=== PATIENT | male | born 1960 | race Caucasian/White ===

== ENCOUNTER 2018-05-20 10:36 | Emergency (ER) | payer MEDICAID, MEDICARE ==
[2018-05-20] MEDS ORDERED: ONDANSETRON HCL INJ/PF 4 MG/2 ML SDV IV ONE (11:31)
[2018-05-20] MEDS ORDERED: NORMAL SALINE 1000 ML 1,000 ML IV ONE ×2 (11:31→14:26)
--- NOTE | 2018-05-20 11:33 | ER Document Report ---
ED Medical Screen (RME) - General Chief Complaint: General Weakness Stated Complaint: ABDOMINAL PAIN Time Seen by Provider: 05/20/18 11:26 Notes: 58-year-old diabetic with 2-day history of feeling weak, nauseous, some abdominal discomfort, feeling like is going to pass out every time he stands up. He is hypotensive and tachycardic, has not checked his sugars. I have greeted and performed a rapid initial assessment of this patient. A com prehensive ED assessment and evaluation of the patient, analysis of test results and completion of the medical decision making process will be conducted by additional ED providers. TRAVEL OUTSIDE OF THE [place] IN LAST 30 DAYS: No - Related Data Allergies/Adverse Reactions: No Known Allergies Allergy (Unverified 05/20/18 10:38) Past Medical History - Social History Chew tobacco use (# tins/day): No Frequency of alcohol use: None Drug Abuse: None Renal/ Medical History: Denies: Hx Peritoneal Dialysis Physical Exam - Vital signs Vitals: Temp Pulse Resp BP Pulse Ox 97.9 F 118 H 14 101/60 95 05/20/18 10:46 05/20/18 10:46 05/20/18 10:46 05/20/18 10:46 05/20/18 10:46 Course - Vital Signs Vital signs: Temp Pulse Resp BP Pulse Ox 97.9 F 118 H 14 101/60 95 05/20/18 10:46 05/20/18 10:46 05/20/18 10:46 05/20/18 10:46 05/20/18 10:46
[2018-05-20 12:28] LABS: ABSOLUTE BASOPHILS # (AUTO) 0.1 10^3/uL (0.0-0.2); ABSOLUTE EOSINOPHILS # (AUTO) 0.3 10^3/uL (0.0-0.6); ABSOLUTE LYMPHOCYTES (AUTO) 1.6 10^3/uL (0.5-4.7); ABSOLUTE MONOCYTES (AUTO) 0.8 10^3/uL (0.1-1.4); ABSOLUTE NEUT (AUTO) 9.1 10^3/uL (1.7-8.2); BASOPHILS % (AUTO) 1.1 % (0-2); EOSINOPHILS % (AUTO) 2.6 % (0-6); HEMOGLOBIN 13.8 g/dL (13.5-17.0); LYMPHOCYTES % (AUTO) 13.5 % (13-45); MEAN CORPUSCULAR HGB CONC 32.8 g/dL (32.0-36.0); MEAN CORPUSCULAR VOLUME 76 fl (80-97); PLATELET COUNT 311 10^3/uL (150-450); RED CELL DISTRIBUTION WIDTH 17.1 % (11.5-14.0); SEGMENTED NEUTROPHILS % (AUTO) 75.8 % (42-78); TOTAL CELLS COUNTED % (AUTO) 100 %
[2018-05-20 12:37] LABS: APPEARANCE,URINE CLEAR; BILIRUBIN,URINE NEGATIVE (NEGATIVE); COLOR,URINE YELLOW; GLUCOSE, URINE >=500 mg/dL (NEGATIVE); KETONES,URINE NEGATIVE (NEGATIVE); LEUKOCYTE ESTERASE,URINE NEGATIVE (NEGATIVE); NITRITE,URINE NEGATIVE (NEGATIVE); PROTEIN,URINE 30 mg/dL (NEGATIVE); URINE SPECIFIC GRAVITY 1.027; UROBILINOGEN,URINE NEGATIVE mg/dL (<2.0)
--- NOTE | 2018-05-20 12:43 | ER Document Report ---
ED Dizziness/Weakness - General Chief Complaint: General Weakness Stated Complaint: ABDOMINAL PAIN Time Seen by Provider: 05/20/18 11:26 Notes: Patient says he is feeling lightheaded and weak and dizzy and feels as if he might pass out since yesterday. Flores s been nauseated but not vomiting. Has been able to eat, although less than usual. He has had plenty of fluids. Says he tries to drink about a gallon of water every day and has been able to do so. Urinating is normal for him. He is an insulin-dependent diabetic who is on Jardiance and Januvia, but has been unable to check his blood sugars because his dog ate his glucometer. Patient has not noticed any fevers. Has not had any diarrhea. No blood in his stools. History of hypertension for which she is on losartan. TRAVEL OUTSIDE OF THE [place] IN LAST 30 DAYS: No - Related Data Allergies/Adverse Reactions: No Known Allergies Allergy (Unverified 05/20/18 10:38) Past Medical History - Social History Smoking Status: Former Smoker Chew tobacco use (# tins/day): No Frequency of alcohol use: None Drug Abuse: None Family History: Reviewed & Not Pertinent Patient has suicidal ideation: No Patient has homicidal ideation: No - Past Medical History Cardiac Medical History: Reports: Hx Hypertension Endocrine Medical History: Reports: Hx Diabetes Mellitus Type 1, Other - On Jardiance and Januviamet Past Surgical History: Denies: Hx Abdominal Surgery Review of Systems - Review of Systems Notes: REVIEW OF SYSTEMS: CONSTITUTIONAL : Denies fever. Feels generalized weakness. EENT: Denies eye, ear, nose or mouth or throat pain or other symptoms. CARDIOVASCULAR: Denies chest pain. RESPIRATORY: Denies cough, chest congestion, or shortness of breath. GASTROINTESTINAL: Nausea but not vomiting. No diarrhea. No blood in stools. GENITOURINARY: Denies difficulty or painful urinating, urinary frequency, blood in urine. MUSCULOSKELETAL: Denies back or neck pain. Denies joint pain or swelling. SKIN: Denies rash or skin lesions. NEUROLOGICAL: Denies LOC or altered mental status. Denies headache. Denies sensory loss or motor deficits. ALL OTHER SYSTEMS REVIEWED AND NEGATIVE. Physical Exam - Vital signs Vitals: Temp Pulse Resp BP Pulse Ox 97.9 F 118 H 14 101/60 95 05/20/18 10:46 05/20/18 10:46 05/20/18 10:46 05/20/18 10:46 05/20/18 10:46 Interpretation: Hypotensive, Tachycardic Notes: PHYSICAL EXAMINATION: GENERAL: Well-appearing, in no acute distress. Feels lightheaded as if he might pass out. Blood pressure is slightly low at 101/60 and a heart rate of 118. Not diaphoretic HEAD: Atraumatic, normocephalic. EYES: Pupils equal round and reactive to light, extraocular movements intact. ENT: oropharynx clear without exudates. Moist mucous membranes. NECK: Normal range of motion, supple. LUNGS: Breath sounds clear and equal bilaterally. HEART: Regular rate and rhythm without murmurs. Heart rate 100 at bedside by me. ABDOMEN: Soft, nontender. No guarding or rebound. No masses. No bruits heard. BACK: No tenderness throughout entire back. EXTREMITIES: Normal range of motion without pain. Negative Homans bilaterally. NEUROLOGICAL: Normal speech, normal gait. Normal sensory, motor, and reflex exams. Awake, alert, and oriented x3. Cranial nerves normal. PSYCH: Normal mood, normal affect. SKIN: Warm, dry, no rashes. Course - Vital Signs Vital signs: Temp Pulse Resp BP Pulse Ox 97.9 F 118 H 14 101/60 95 05/20/18 10:46 05/20/18 10:46 05/20/18 10:46 05/20/18 10:46 05/20/18 10:46 - Laboratory Result Diagrams: 05/20/18 11:59 05/20/18 11:59 Laboratory results interpreted by me: 05/20/18 05/20/18 05/20/18 11:50 11:59 11:59 WBC 12.0 H MCV 76 L MCH 25.0 L RDW 17.1 H Absolute Neutrophils 9.1 H BUN 34 H Creatinine 1.65 H Est GFR ( Amer) 52 L Est GFR (Non-Af Amer) 43 L Glucose 213 H Calcium 10.6 H AST 74 H Alkaline Phosphatase 154 H Total Protein 8.8 H Albumin 5.1 H Urine Protein 30 H Urine Glucose (UA) >=500 H Discharge - Discharge Clinical Impression: Nausea, Light-headed feeling, Dehydration, moderate Condition: Stable Disposition: HOME, SELF-CARE Additional Instructions: NAUSEA AND/OR VOMITING: Vomiting (or nausea without vomiting) can be caused by many other different problems. It can mean that something's wrong with the stomach, such as ulcers or inflammation or the intestinal tract, such as appendicitis. But it can also be a symptom of a problem that has nothing to do with the stomach or intestines. Vomiting is common with severe headaches, earaches, tonsillitis, and kidney infections, etc. We see it with pneumonia or heart attacks. Drugs can cause nausea and vomiting. Many abdominal problems cause vomiting; for example, gallstones, kidney stones, pancreatitis, and intestinal obstruction (blocked bowels). In most cases, curing the vomiting depends on fixing the problem that cau sed it. For temporary relief, we may use an anti-nausea medicine. For home use, we can prescribe suppositories, chewable pills, pills that dissolve in the mouth, or liquid anti-nausea drugs. If the vomiting seems to be caused by a problem in the stomach, acid-suppressing drugs may be prescribed as well. It's important to avoid dehydration. Sip small amounts of clear liquids (soft drinks, tea, broth, etc) . Try to take fluids frequently even if you are vomiting to prevent dehydration. Take increasing amounts of fluid and when liquids are being consumed successfully, advance to small amounts of bland food (toast, soups, mashed potatoes, etc.) until you are able to resume a regular diet. Avoid aspirin, tobacco, and alcohol. If the vomiting worsens, if the problem that's making you vomit worsens, or if there's evidence of bleeding in the stomach (such as black, tarry stool, or bloody or black vomit), you should return immediately. Also, return if abdominal pain worsens or becomes localized to one area or you develop high fever. Call your doctor if you aren't improved in 24 hours. VIRAL SYNDROME: The physician has diagnosed a viral infection. Viruses not only cause " colds," but can cause many different symptoms including generalized aching, fever, headache, cough, diarrhea, nausea, vomiting, and fatigue. The treatment, for the most part, is simply relief of symptoms. This means that antibiotics are usually not given. Rest, fluids, pain medications and, oc casionally, medication for the specific symptoms that are most bothersome will be prescribed. Use good handwashing to avoid passing the virus to others. Shared toys should be cleaned with disinfectant. Clean the toilets, sinks, and counter surfaces in bathrooms. Launder clothing in hot water. Contact the physician if you develop any new or unusual symptoms such as severe headache, stiff neck, high fever, chest pain, productive cough, or shortness of breath. You should be rechecked if you don't see marked improvement within seven to 10 days. Dehydration Dehydration can result from vomiting or diarrhea, fever, or decreased intake of fluids. If severe, hospitalization and intravenous fluids may be required. Most cases are treated at home with fluids by mouth. For the next 24 hours, drink lots of clear fluids. In mild cases, this can be soda pop or sports drinks. For more severe dehydration, the doctor may recommend special fluids such as Pedialyte or Lytren. Try to get three liters (3 quarts) of fluid per day. If vomiting occurs, continue to drink the fluids frequently (every 15 to 20 minutes), but in small amounts (one or two ounces). Depending on the type of dehydration, the doctor may prescribe antinausea medicine or potassium replacements. Call the doctor or return for re-examination if you become progressively weak, vomit repeatedly, or have other new symptoms. INTRAVENOUS (I V) FLUIDS: As part of your care today, you received intravenous (IV) fluids. IV fluids are administered to patients who are dehydrated or to those who have certain chemical (electrolyte) abnormalities that need correcting. ANTINAUSEA MEDICATION: You have been given a medication to suppress nausea and vomiting. This type of medication can be given as a shot, pill, or suppository. It will usually last for many hours. Pills and shots usually last six to eight hours. For the typical illness, only one or two doses of the medication may be necessary. Mild lightheadedness may occur. This type of medicine can cause tanya wsiness. Do not drive or operate dangerous machinery while under its influence. Do not mix with alcohol. See your doctor at once if you have muscle spasms or tightness, or uncontrollable motions (particularly of the neck, mouth, or jaw). Persistent vomiting or severe lightheadedness should also be evaluated by the physician. FOLLOW-UP CARE: If you have been referred to a physician for follow-up care, call the physicians office for an appointment as you were instructed or within the next two days. If you experience worsening or a significant change in your symptoms, notify the physician immediately or return to the Emergency Department at any time for re-evaluation. Drink plenty of fluids, and try to drink more fluids that have electrolytes in them such as sodas and Gatorade, etc. Plain water is good, but some variety with electrolytes would be helpful.
[2018-05-20 12:47] LABS: ALANINE AMINOTRANSFERASE 70 U/L (21-72); ALBUMIN 5.1 g/dL (3.5-5.0); ALKALINE PHOSPHATASE 154 U/L (38-126); ANION GAP 14 (5-19); ASPARTATE AMINO TRANSFERASE 74 U/L (17-59); BILIRUBIN,DIRECT 0.3 mg/dL (0.0-0.4); BILIRUBIN,TOTAL 0.5 mg/dL (0.2-1.3); BLOOD UREA NITROGEN 34 mg/dL (7-20); CALCIUM 10.6 mg/dL (8.4-10.2); CARBON DIOXIDE 25 mmol/L (22-30); CHLORIDE 100 mmol/L (98-107); CREATINE KINASE 131 U/L (55-170); GLUCOSE 213 mg/dL (75-110); POTASSIUM 4.6 mmol/L (3.6-5.0); SODIUM 139.2 mmol/L (137-145); TOTAL PROTEIN 8.8 g/dL (6.3-8.2)
[2018-05-20 12:59] LABS: TROPONIN I < 0.012 ng/mL
[2018-05-20 16:49] VITALS: BP 129/68
--- NOTE | 2018-05-21 00:06 | EKG REPORT ---
SEVERITY:- BORDERLINE ECG - SINUS TACHYCARDIA BORDERLINE T WAVE ABNORMALITIES : Confirmed by: Rosalie Seay 21-May-2018 00:06:12
== END 2018-05-20 16:49 | disposition home or self-care (01) ==
LOC: ER 10:36
DX: R11.0 Nausea (principal); R42 Dizziness and giddiness; E86.0 Dehydration; R53.1 Weakness; E11.9 Type 2 diabetes mellitus without complications; Z79.4 Long term (current) use of insulin; Z87.891 Personal history of nicotine dependence; I10 Essential (primary) hypertension
CPT/HCPCS: 93005; 99284; 96361; 96374; 36415; 87040; 87086; 82553; 82550; 85025; 80053; 81001; 84484; 93010; J2405; J7030

== ENCOUNTER 2018-06-02 12:06 | Emergency (ER) | payer MEDICARE ==
[2018-06-02] MEDS ORDERED: DIPH/PERTUSS(ACELL)/TETANUS VAC/PF 0.5 ML SYR (>=10YO) IM ONE (12:27)
--- NOTE | 2018-06-02 12:28 | ER Document Report ---
ED Medical Screen (RME) - General Chief Complaint: Laceration Stated Complaint: LACERATION Time Seen by Provider: 06/02/18 12:23 Primary Care Provider: JOSE SCOTT PA [Primary Care Provider] - Follow up as needed Notes: 88-year-old male patient with type 1 insulin-dependent diabetes, reports she slipped in mud at his shed, he grabbed a metal pole and suffered a laceration between the left fourth and fifth fingers in the web space. I have greeted and performed a rapid initial assessment of this patient. A comprehensive ED assessment and evaluation of the patient, analysis of test results and completion of the medical decision making process will be conducted by additional ED providers. TRAVEL OUTSIDE OF THE [place] IN LAST 30 DAYS: No - Related Data Allergies/Adverse Reactions: No Known Allergies Allergy (Verified 06/02/18 12:10) Past Medical History - Past Medical History Cardiac Medical History: Reports: Hx Hypertension Endocrine Medical History: Reports: Hx Diabetes Mellitus Type 1 Renal/ Medical History: Denies: Hx Peritoneal Dialysis Past Surgical History: Denies: Hx Abdominal Surgery Physical Exam - Vital signs Vitals: Temp Pulse Resp BP Pulse Ox 98.1 F 109 H 16 146/72 H 97 06/02/18 12:21 06/02/18 12:21 06/02/18 12:21 06/02/18 12:21 06/02/18 12:21 Course - Vital Signs Vital signs: Temp Pulse Resp BP Pulse Ox 98.1 F 109 H 16 146/72 H 97 06/02/18 12:21 06/02/18 12:21 06/02/18 12:21 06/02/18 12:21 06/02/18 12:21 Doctor's Discharge - Discharge Referrals: JOSE SCOTT PA [Primary Care Provider] - Follow up as needed
[2018-06-02] MEDS ORDERED: MORPHINE SULFATE 10 MG/ML INJ IM ONE (13:14)
[2018-06-02] MEDS ORDERED: LIDOCAINE 1%/EPINEPHRINE INJ 20 ML VIAL INJ ONE (13:45)
[2018-06-02] MEDS ORDERED: CEPHALEXIN 500 MG CAPSULE PO ONE (14:00)
--- NOTE | 2018-06-02 14:00 | ER Document Report ---
ED Wound - General Chief Complaint: Laceration Stated Complaint: LACERATION Time Seen by Provider: 06/02/18 12:23 Primary Care Provider: JOSE SCOTT PA [Primary Care Provider] - Follow up as needed Information source: Patient Notes: Patient is a 58-year-old male that was holding a piece of metal when he accidentally fell causing a laceration between his left fourth and fifth finger. Tetanus is not up-to-date. Patient denies any weakness or numbness to his fingers. Patient does have a history of diabetes. TRAVEL OUTSIDE OF THE [place] IN LAST 30 DAYS: No - HPI Patient complains to provider of: Laceration Occurred: Just prior to arrival Onset/Duration: Gradual Quality of pain: Achy Severity: Mild Pain Level: 2 Context: Injury, Spontaneous Capillary refill: < 3 seconds Sensations intact: Yes Associated Symptoms: None - Related Data Allergies/Adverse Reactions: No Known Allergies Allergy (Verified 06/02/18 12:10) Past Medical History - Social History Smoking Status: Current Some Day Smoker Chew tobacco use (# tins/day): No Frequency of alcohol use: None Drug Abuse: None Family History: Reviewed & Not Pertinent Patient has suicidal ideation: No Patient has homicidal ideation: No - Past Medical History Cardiac Medical History: Reports: Hx Hypertension Endocrine Medical History: Reports: Hx Diabetes Mellitus Type 1 Renal/ Medical History: Denies: Hx Peritoneal Dialysis Past Surgical History: Denies: Hx Abdominal Surgery Physical Exam - Vital signs Vitals: Temp Pulse Resp BP Pulse Ox 98.1 F 109 H 16 146/72 H 97 06/02/18 12:21 06/02/18 12:21 06/02/18 12:21 06/02/18 12:21 06/02/18 12:21 Interpretation: Normal Notes: Reviewed vital signs and nursing note as charted by RN. CONSTITUTIONAL: Alert and oriented and responds appropriately to questions. Well-appearing; well-nourished HEAD: Normocephalic; atraumatic NECK: Supple without meningismus; non-tender CARD: Regular rate and rhythm; no murmurs; symmetric distal pulses RESP: Normal chest excursion without splinting or tachypnea; breath sounds clear and equal bilaterally ABD/GI: Normal bowel sounds; non-distended; soft, non-tender BACK: No midline tenderness SKIN: See below NEURO: CN 2-12 intact PSYCH: The patient's mood and manner are appropriate. Grooming and personal hygiene are appropriate. EXT: Patient has a laceration between the fourth and fifth digits at the webspace. Patient has excellent capillary refill, sensation, with full flexion and extension strength. No other tenderness or swelling to any other joint or extremity Course - Re-evaluation Re-evalutation: 06/02/18 14:00 Given the above history and physical examination we will order an x-ray to evaluate for the possibility of a fracture or foreign body. We have removed the patient's ring on his finger. We have updated the tetanus shot. I will provide a dose of Keflex and perform an Accu-Chek at this time. 06/02/18 14:24 Patient's Accu-Chek as recorded. I will order basic labs including a venous blood gas and provide a liter of fluid. Once the potassium and creatinine returns I will provide insulin. Patient takes 50 units of 70/30 daily and believes that he has taken it this morning. His thinks that he may have forgotten. 06/02/18 16:22 Labs as recorded. Insulin another liter of fluid has been provided. The tech will place the splint. Patient will be discharged home with strict return precautions once the glucose improves, a Keflex prescription, and follow-up with orthopedics. - Vital Signs Vital signs: Temp Pulse Resp BP Pulse Ox 98.1 F 109 H 16 146/72 H 97 06/02/18 12:21 06/02/18 12:21 06/02/18 12:21 06/02/18 12:21 06/02/18 12:21 - Laboratory Result Diagrams: 06/02/18 14:46 06/02/18 14:46 Laboratory results interpreted by me: 06/02/18 06/02/18 14:46 14:46 WBC 10.6 H Hgb 11.9 L Hct 37.8 L MCV 77 L MCH 24.4 L MCHC 31.6 L RDW 16.6 H Sodium 131.7 L Potassium 5.2 H Chloride 94 L Glucose 546 H* Procedures - Laceration/Wound Repair Left Hand Wound length (cm): 2.5 Wound's Depth, Shape: Irregular, Other - Between the webspaces complicating the laceration repair Laceration pre-procedure: Chloraprep applied Anesthetic type: 1% Lidocaine w/epi Volume Anesthetic (mLs): 8 Wound explored: Clean Irrigated w/ Saline (mLs): 1,000 Wound Repaired With: Sutures Suture Size/Type: 4:0, Prolene Number of Sutures: 4 Layer Closure?: No Post-procedure wound care: Sterile dressing applied, Splint applied Post-procedure NV exam normal: Yes Complications: No Discharge - Discharge Clinical Impression: Hyperglycemia due to type 1 diabetes mellitus Laceration of left hand Qualifiers: Encounter type: initial encounter Foreign body presence: without foreign body Qualified Code(s): S61.412A - Laceration without foreign body of left hand, initial encounter Condition: Good Disposition: HOME, SELF-CARE Instructions: Antibiotic Ointment Protection ([facility]), Laceration Care ([facility]), Tetanus Immunization Given ([facility]), Prophylactic Antibiotic ([facility]) Additional Instructions: Come back immediately for any hand swelling, redness, increased pain, weakness or numbness, fever, or any other acute problems. Please keep the area covered and apply bacitracin to the wound twice daily. Return in around 7-10 days for suture removal. It may benefit you to see orthopedics as we have discussed and provided. Please make sure that you keep tight control of your blood glucose as instructed. Prescriptions: Cephalexin Monohydrate [Keflex 500 mg Capsule] 500 mg PO Q6H 5 Days #20 capsule Referrals: JOSE SCOTT PA [Primary Care Provider] - Follow up as needed VON WHITING MD [ACTIVE STAFF] - Follow up as needed
--- NOTE | 2018-06-02 14:12 | RADIOLOGY REPORT (SQ) ---
EXAM DESCRIPTION: HAND LEFT 3 VIEWS COMPLETED DATE/TIME: 06/02/2018 1:53 pm REASON FOR STUDY: 20, left hand lac. Laceration at the 4th and 5th fingers. COMPARISON: None. EXAM PARAMETERS: NUMBER OF VIEWS: Three views. TECHNIQUE: AP, lateral and oblique radiographic images acquired of the left hand. LIMITATIONS: None. FINDINGS: MINERALIZATION: Normal. BONES: No acute fracture or dislocation. SOFT TISSUES: No significant soft tissue swelling. Overlying bandage is seen at the hand. Otherwise , no radiopaque foreign body is identified. IMPRESSION: No radiographic evidence of acute fracture or radiopaque foreign body at the left hand. TECHNICAL DOCUMENTATION: JOB ID: [id number] [place]-64 2010 [employer]- All Rights Reserved Reading location - IP/workstation name: [email or web address]
[2018-06-02] MEDS ORDERED: NORMAL SALINE 1000 ML 1,000 ML IV ONE ×2 (14:28→15:40)
[2018-06-02 14:57] LABS: VENOUS BLOOD BASE EXCESS -1.4 mmol/L; VENOUS BLOOD HCO3 25.8 mmol/L (20-32); VENOUS BLOOD PCO2 54.3 mmHg (35-63); VENOUS BLOOD PH 7.3 (7.30-7.42)
[2018-06-02 15:00] LABS: ABSOLUTE BASOPHILS # (AUTO) 0.1 10^3/uL (0.0-0.2); ABSOLUTE EOSINOPHILS # (AUTO) 0.2 10^3/uL (0.0-0.6); ABSOLUTE LYMPHOCYTES (AUTO) 1.7 10^3/uL (0.5-4.7); ABSOLUTE MONOCYTES (AUTO) 0.9 10^3/uL (0.1-1.4); ABSOLUTE NEUT (AUTO) 7.7 10^3/uL (1.7-8.2); BASOPHILS % (AUTO) 0.9 % (0-2); EOSINOPHILS % (AUTO) 1.6 % (0-6); HEMATOCRIT 37.8 % (37.9-51.0); HEMOGLOBIN 11.9 g/dL (13.5-17.0); LYMPHOCYTES % (AUTO) 16.3 % (13-45); MEAN CORPUSCULAR HEMOGLOBIN 24.4 pg (27.0-33.4); MEAN CORPUSCULAR HGB CONC 31.6 g/dL (32.0-36.0); MEAN CORPUSCULAR VOLUME 77 fl (80-97); MONOCYTES % (AUTO) 8.5 % (3-13); PLATELET COUNT 280 10^3/uL (150-450); RED CELL DISTRIBUTION WIDTH 16.6 % (11.5-14.0); SEGMENTED NEUTROPHILS % (AUTO) 72.7 % (42-78); TOTAL CELLS COUNTED % (AUTO) 100 %; WHITE BLOOD COUNT 10.6 10^3/uL (4.0-10.5)
[2018-06-02 15:19] LABS: ANION GAP 12 (5-19); BLOOD UREA NITROGEN 20 mg/dL (7-20); CALCIUM 9.7 mg/dL (8.4-10.2); CARBON DIOXIDE 26 mmol/L (22-30); CHLORIDE 94 mmol/L (98-107); POTASSIUM 5.2 mmol/L (3.6-5.0); SODIUM 131.7 mmol/L (137-145)
[2018-06-02 15:39] LABS: GLUCOSE 546 mg/dL (75-110)
[2018-06-02] MEDS ORDERED: INSULIN REG, HUMAN 100 UNIT/ML 3 ML VIAL (PYX) IV ONE (15:40)
[2018-06-02 17:56] VITALS: BP 149/83
== END 2018-06-02 17:05 | disposition home or self-care (01) ==
LOC: ER 12:06
DX: S61.412A Laceration without foreign body of left hand, initial encounter (principal); E10.65 Type 1 diabetes mellitus with hyperglycemia; W19.XXXA Unspecified fall, initial encounter; F17.200 Nicotine dependence, unspecified, uncomplicated; Z23 Encounter for immunization; I10 Essential (primary) hypertension
CPT/HCPCS: 99283; 96372; 96360; 96361; 90471; 36415; 82962; 85025; 80048; 82803; 73130; 90715; 12001; A9270 ×2; J3490; J2270; J7030; J1815

== ENCOUNTER 2018-06-11 14:33 | Emergency (ER) | payer MEDICARE ==
--- NOTE | 2018-06-11 17:50 | ER Document Report ---
ED Suture/Wound Recheck - General Chief Complaint: Suture Removal Stated Complaint: STICHES REMOVAL Time Seen by Provider: 06/11/18 17:30 Primary Care Provider: JOSE SCOTT PA [Primary Care Provider] - Follow up as needed Notes: 58-year-old male with type 2 diabetes presents for suture removal. Patient states he came in "one day early because my wanted me to get this bruising look that ". Patient denies any fevers, chills, infectious symptoms patient denies any abnormal purulent discharge from the wound. No other complaints TRAVEL OUTSIDE OF THE [place] IN LAST 30 DAYS: No - Related Data Allergies/Adverse Reactions: No Known Allergies Allergy (Verified 06/11/18 14:48) Past Medical History - Social History Smoking Status: Former Smoker Family History: Reviewed & Not Pertinent Patient has suicidal ideation: No Patient has homicidal ideation: No - Past Medical History Cardiac Medical History: Reports: Hx Hypertension Endocrine Medical History: Reports: Hx Diabetes Mellitus Type 1 Renal/ Medical History: Denies: Hx Peritoneal Dialysis Past Surgical History: Denies: Hx Abdominal Surgery Physical Exam - Vital signs Vitals: Temp Pulse Resp BP Pulse Ox 98.3 F 84 18 146/85 H 100 06/11/18 15:08 06/11/18 15:08 06/11/18 15:08 06/11/18 15:08 06/11/18 15:08 - Skin Skin Moisture: Dry Skin Color: Ecchymosis - Ecchymosis palmar aspect of left hand in the area of the fourth and fifth digits from the distal aspect of the palm to the PIP. Cap refill sluggish, hands cold but right hand is also cold as well. Sutures in the webspace in place and evidence of poor wound healing as there is no scabbing or good union of the laceration. Course - Re-evaluation Re-evalutation: 06/11/18 17:49 Well-appearing 58-year-old male presents for stitch removal. On inspection there is ecchymosis in the left fourth and fifth digits palmar side extending onto the distal aspect of the palm. Poor wound healing visualized and if sutures were removed wound would be his. I was able to remove the suture on the palm and left 3 remaining. He did not follow-up with Orth O as per instructions from his initial visit. I instructed patient that he needs to follow-up with orthopedics as he is a high risk - Vital Signs Vital signs: Temp Pulse Resp BP Pulse Ox 98.3 F 84 18 146/85 H 100 06/11/18 15:08 06/11/18 15:08 06/11/18 15:08 06/11/18 15:08 06/11/18 15:08 Discharge - Discharge Clinical Impression: Visit for wound check Condition: Good Disposition: HOME, SELF-CARE Additional Instructions: You are seen in the emergency department this afternoon for suture removal and wound check. However, your laceration is not healed and we left 3 of the sutures in. It would benefit you to contact orthopedics to have them assess your wound in your hand as you are diabetic and that they not only treat bones but also soft tissues. It would benefit you most by following up with orthopedics prior to getting sutures removed from another source. If you develop high fever, you lose complete sensation of those fingers, they turned completely blue or black, you are not able to move your fingers, or you have any other concerning symptoms please immediately return to the emergency department. Referrals: JOSE SCOTT PA [Primary Care Provider] - Follow up as needed
[2018-06-11 18:03] VITALS: BP 152/94
== END 2018-06-11 18:11 | disposition home or self-care (01) ==
LOC: ER 14:33
DX: S61.412D Laceration without foreign body of left hand, subsequent encounter (principal); X58.XXXD Exposure to other specified factors, subsequent encounter; E11.9 Type 2 diabetes mellitus without complications; I10 Essential (primary) hypertension; Z87.891 Personal history of nicotine dependence
CPT/HCPCS: 99281

== ENCOUNTER 2018-06-17 14:14 | Emergency (ER) | payer MEDICARE ==
[2018-06-17 14:23] VITALS: BP 153/67
--- NOTE | 2018-06-17 14:50 | ER Document Report ---
HPI - HPI Time Seen by Provider: 06/17/18 14:32 Pain Level: Denies Notes: Patient is a 58-year-old male type II diabetic who presents the emergency department for removal of the last 3 sutures wound between his fourth and fifth digits of his left hand. Patient was here about 6 days ago and had all but 3 of the sutures removed that were placed about 2 weeks ago. Patient states that he has not had any complications since then and has not noticed any redness or puru lent discharge. Denies drug allergies. No other concerns or complaints. Denies any headache, fever, neck pain, URI, sore throat, chest pain, palpitations, syncope, cough, shortness of breath, wheeze, dyspnea, abdominal pain, nausea/vomiting/diarrhea, urinary retention, dysuria, hematuria, numbness/tingling, muscle paralysis/weakness, or rash. - ROS Systems Reviewed and Negative: Yes All other systems reviewed and negative - CONSTITUTIONAL Constitutional: DENIES: Fever, Chills - EENT EENT: DENIES: Sore Throat, Ear Pain, Eye problems - NEURO Neurology: DENIES: Headache, Weakness, Vision blurred, Dizzinesss / Vertigo - CARDIOVASCULAR Cardiovascular: DENIES: Chest pain - RESPIRATORY Respiratory: DENIES: Trouble Breathing, Coughing - GASTROINTESTINAL Gastrointestinal: DENIES: Abdominal Pain, Black / Bloody Stools - URINARY Urinary: DENIES: Dysuria, Urgency, Frequency - MUSCULOSKELETAL Musculoskeletal: DENIES: Extremity pain Past Medical History - Social History Smoking Status: Unknown if Ever Smoked Family History: Reviewed & Not Pertinent Patient has suicidal ideation: No Patient has homicidal ideation: No - Past Medical History Cardiac Medical History: Reports: Hx Hypertension Endocrine Medical History: Reports: Hx Diabetes Mellitus Type 1 Renal/ Medical History: Denies: Hx Peritoneal Dialysis Past Surgical History: Denies: Hx Abdominal Surgery Vertical Provider Document - CONSTITUTIONAL Agree With Documented VS: Yes Notes: PHYSICAL EXAMINATION: GENERAL: Well-appearing, well-nourished and in no acute distress. LUNGS: Breath sounds clear to auscultation bilaterally and equal. No wheezes rales or rhonchi. HEART: Regular rate and rhythm without murmurs, rubs, gallops. Musculoskeletal: Left hand/fingers: FROM to passive/active. Strength 5+/5. N/V intact distal. There are [address] b/w the 4-5th digits in the webspace. The wound appears to have healed while leaving the superficial skin open. No erythema, purulence, abscess, or induration. No streaks or tenderness. Extremities: No cyanosis, clubbing, or edema b/l. Peripheral pulses 2+. Cap illary refill less than 3 seconds. NEUROLOGICAL: Normal speech, normal gait. Normal sensory, motor exams PSYCH: Normal mood, normal affect. SKIN: see above. - INFECTION CONTROL TRAVEL OUTSIDE OF THE [place] IN LAST 30 DAYS: No Course - Re-evaluation Re-evalutation: 06/17/18 14:48 Vitals are acceptable. PE is otherwise unremarkable. Sutures removed successfully without any complications. Patient to recheck with his PCM this week. Return to the ED as reviewed as needed. Patient is in agreement. 06/17/18 14:48 - Vital Signs Vital signs: Temp Pulse Resp BP Pulse Ox 98.3 F 93 16 153/67 H 100 06/17/18 14:22 06/17/18 14:22 06/17/18 14:22 06/17/18 14:22 06/17/18 14:22 Discharge - Discharge Clinical Impression: Encounter for removal of sutures Condition: Stable Disposition: HOME, SELF-CARE Instructions: Suture Removal Additional Instructions: Keep the skin clean Wash with soap and water Tylenol/ibuprofen if needed Monitor for any worsening symptoms Recheck with your PCM in 3-5 days Return to the ED with any worsening symptoms and/or development of fever, headache, chest pain, palpitations, syncope, shortness of breath, trouble breathing, abdominal pain, n/v/d, abscess, purulent discharge, red streaks, worsening swelling, or other worsening symptoms that are concerning to you. Forms: Elevated Blood Pressure Referrals: JOSE SCOTT PA [Primary Care Provider] - Follow up as needed
== END 2018-06-17 14:55 | disposition home or self-care (01) ==
LOC: ER 14:14
DX: S61.412D Laceration without foreign body of left hand, subsequent encounter (principal); X58.XXXD Exposure to other specified factors, subsequent encounter; E11.9 Type 2 diabetes mellitus without complications; I10 Essential (primary) hypertension

== ENCOUNTER 2018-07-28 15:21 | Emergency (ER) | payer MEDICAID, MEDICARE ==
[2018-07-28 15:34] VITALS: BP 117/73
--- NOTE | 2018-07-28 15:57 | ER Document Report ---
ED Medical Screen (RME) - General Chief Complaint: Laceration Stated Complaint: ARM LACERATION Time Seen by Provider: 07/28/18 15:56 Primary Care Provider: JOSE SCOTT PA [Primary Care Provider] - Follow up as needed TRAVEL OUTSIDE OF THE [place] IN LAST 30 DAYS: No - HPI Notes: 07/28/18 15:56 Cut left antecubital region on sheet-metal tetanus updated last month - Related Data Allergies/Adverse Reactions: No Known Allergies Allergy (Verified 06/11/18 14:48) Past Medical History - Past Medical History Cardiac Medical History: Reports: Hx Hypertension Endocrine Medical History: Reports: Hx Diabetes Mellitus Type 1 Renal/ Medical History: Denies: Hx Peritoneal Dialysis Past Surgical History: Denies: Hx Abdominal Surgery Review of Systems - Review of Systems Skin: Other - laceration Physical Exam - Vital signs Vitals: Temp Pulse Resp BP Pulse Ox 99.1 F 107 H 20 117/73 95 07/28/18 15:30 07/28/18 15:30 07/28/18 15:30 07/28/18 15:30 07/28/18 15:30 - Respiratory Respiratory status: No respiratory distress Chest status: Nontender Breath sounds: Normal Chest palpation: Normal Course - Vital Signs Vital signs: Temp Pulse Resp BP Pulse Ox 99.1 F 107 H 20 117/73 95 07/28/18 15:30 07/28/18 15:30 07/28/18 15:30 07/28/18 15:30 07/28/18 15:30 Doctor's Discharge - Discharge Referrals: JOSE SCOTT PA [Primary Care Provider] - Follow up as needed
[2018-07-28] MEDS ORDERED: LIDOCAINE 1% INJ-PF (10 MG/ML) 30 ML SDV INJ ONE (16:21)
--- NOTE | 2018-07-28 16:25 | ER Document Report ---
ED General - General Chief Complaint: Laceration Stated Complaint: ARM LACERATION Time Seen by Provider: 07/28/18 15:56 Primary Care Provider: JOSE SCOTT PA [Primary Care Provider] - Follow up as needed Mode of Arrival: Ambulatory Information source: Patient, Relative, [facility] Records Notes: 58-year-old male with hypertension, type 1 diabetes presents with a laceration to his left antecubital fossa. Patient states that just prior to arrival he cut his elbow on a steel panel. Patient had a recent tetanus 1 month prior to arrival. Patient denies any hand weakness, numbness TRAVEL OUTSIDE OF THE [place] IN LAST 30 DAYS: No - HPI Onset: Just prior to arrival Onset/Duration: Sudden Quality of pain: Achy, Burning Severity: Mild Associated symptoms: denies: Chest pain, Chills, Fever, Nausea, Vomiting, Shortness of breath Exacerbated by: Movement Relieved by: Remaining still Similar symptoms previously: No Recently seen / treated by doctor: Yes - Related Data Allergies/Adverse Reactions: No Known Allergies Allergy (Verified 06/11/18 14:48) Past Medical History - General Information source: Patient - Social History Smoking Status: Never Smoker Chew tobacco use (# tins/day): No Frequency of alcohol use: None Drug Abuse: None Lives with: Spouse/Significant other Family History: Reviewed & Not Pertinent Patient has suicidal ideation: No Patient has homicidal ideation: No - Past Medical History Cardiac Medical History: Reports: Hx Hypertension Endocrine Medical History: Reports: Hx Diabetes Mellitus Type 1 Renal/ Medical History: Denies: Hx Peritoneal Dialysis Past Surgical History: Denies: Hx Abdominal Surgery Review of Systems - Review of Systems Notes: REVIEW OF SYSTEMS: CONSTITUTIONAL : Denies fever, chills, or sweats. Denies recent illness. Denies weight loss, recent hospitalizations. EENT: Denies visual changes, eye pain. Denies sore throat, oral lesions, difficulty swallowing. CARDIOVASCULAR: Denies chest pain. Denies palpitations. Denies lower extremity edema. RESPIRATORY: Denies cough. Denies shortness of breath, wheezing. GASTROINTESTINAL: Denies abdominal pain or distention. Denies nausea, vomiting, or diarrhea. Denies blood in vomitus, stools, or per rectum. Denies black, tarry stools. Denies constipation. GENITOURINARY: Denies difficulty urinating, painful urination, frequency, blood in urine, testicular pain or penile discharge. MUSCULOSKELETAL: Denies back or neck pain or stiffness. Denies joint pain or swelling. SKIN: + Laceration left antecubital fossa HEMATOLOGIC : Denies easy bruising or bleeding. LYMPHATIC: Denies swollen glands. NEUROLOGICAL: Denies confusion or altered mental status. Denies loss of consciousness. Denies dizziness or lightheadedness. Denies headache. Denies weakness or paralysis. Denies problems difficulty with ambulation, slurred speech. Denies sensory loss, numbness, or tingling. Denies seizures. PSYCHIATRIC: Denies anxiety or stress. Denies depression, suicidal ideation, or Physical Exam - Vital signs Vitals: Temp Pulse Resp BP Pulse Ox 99.1 F 107 H 20 117/73 95 07/28/18 15:30 07/28/18 15:30 07/28/18 15:30 07/28/18 15:30 07/28/18 15:30 - Notes Notes: PHYSICAL EXAMINATION: GENERAL: Well-appearing, well-nourished and in no acute distress. HEAD: Atraumatic, normocephalic. EYES: Pupils equal round and reactive to light, extraocular movements intact, sclera anicteric, conjunctiva are normal. ENT: Nares patent, oropharynx clear without exudates. Moist mucous membranes. NECK: Normal range of motion, supple without lymphadenopathy LUNGS: Breath sounds clear to auscultation bilaterally and equal. No wheezes rales or rhonchi. HEART: Regular rate and rhythm without murmurs ABDOMEN: Soft, nontender, nondistended abdomen. No guarding, no rebound. No masses appreciated. Musculoskeletal: Normal range of motion, no pitting or edema. No cyanosis. NEUROLOGICAL: Cranial nerves grossly intact. Normal speech, normal gait. Normal sensory, motor exams. Hand exam Symmetrically palpable radial and ulnar pulses. Cap refill less than 2 seconds on all digits. Intact sensation to light touch of the radial, median and ulnar nerves demonstrated by testing in the dorsal webspace of the thumb the distal palmar aspect of the index finger and lateral surface of the fifth finger. Two- point discrimination intact to 5 mm of discrimination in the affected digit. Intact motor function of the radial median and ulnar nerves demonstrated by strength of extension of the isolated distal joint of the index finger, hand reception specialist, and spreading of the second through fifth digits. Intact recurrent median nerve as demonstrated by ability to move down fully through opposition, abduction and flexion. No snuffbox tenderness. PSYCH: Normal mood, normal affect. SKIN: 5 cm laceration to the left antecubital fossa. Tendon exposure without laceration. Course - Re-evaluation Re-evalutation: Elbow X-Ray 07/28/18 15:56 IMPRESSION: NEGATIVE STUDY OF THE LEFT ELBOW. NO RADIOGRAPHIC EVIDENCE OF ACUTE INJURY. Temp Pulse Resp BP Pulse Ox 99.1 F 107 H 20 117/73 95 07/28/18 15:30 07/28/18 15:30 07/28/18 15:30 07/28/18 15:30 07/28/18 15:30 07/28/18 17:14 58-year-old male with hypertension, type 1 diabetes presents with a laceration to his left antecubital fossa. Patient states that just prior to arrival he cut his elbow on a steel panel. Patient had a recent tetanus 1 month prior to arrival. Patient denies any hand weakness, numbness. Vital signs reviewed and within normal limits. Exam significant for a 5 cm linear laceration of the left antecubital fossa. Tendon visualized and without laceration. Patient has a normal neurologic exam. 3 horizontal mattress sutures and 2 simple sutures were placed with good approximation. Because of the patient's history of type 1 diabetes patient will be placed on Keflex. Laceration repair discussed. Patient discharged home in stable condition. Dictation on this chart was performed using voice recognition software and may result in unintended grammatical, spelling, syntax or errors. - Vital Signs Vital signs: Temp Pulse Resp BP Pulse Ox 99.1 F 107 H 20 117/73 95 07/28/18 15:30 07/28/18 15:30 07/28/18 15:30 07/28/18 15:30 07/28/18 15:30 - Diagnostic Test Radiology reviewed: Image reviewed, Reports reviewed Procedures - Laceration/Wound Repair Left Elbow Time completed: 17:11 Wound length (cm): 5 Wound's Depth, Shape: Linear Laceration pre-procedure: Sterile PPE donned, Betadine prep applied, Sterile drapes applied, Shur-Clens applied Anesthetic type: 1% Lidocaine Volume Anesthetic (mLs): 10 Wound explored: Clean, No foreign body removed Irrigated w/ Saline (mLs): 1,000 Wound Repaired With: Sutures Suture Size/Type: 4:0, Prolene Number of Sutures: 5 - 3 horizontal mattress and 2 simple sutures Layer Closure?: Yes Deep Layer Suture Size/Type: 4:0, Gut Number Deep Layer Sutures: 2 Post-procedure wound care: Sterile dressing applied Post-procedure NV exam normal: Yes Complications: No Discharge - Discharge Clinical Impression: Laceration of forearm Qualifiers: Encounter type: initial encounter Laterality: left Qualified Code(s): S51.812A - Laceration without foreign body of left forearm, initial encounter Condition: Good Disposition: HOME, SELF-CARE Instructions: Antibiotic Ointment Protection ([facility]), Laceration Care ([facility]), Prophylactic Antibiotic ([facility]), Soap Cleansing ([facility]) Additional Instructions: Please return to your primary doctor, the ED, or an urgent care in 10 days for suture removal. Return immediately if you develop spreading redness around the wound, pus from the wound, worsening pain, or a fever of >100.4. Keep the area clean and dry. Wash gently with soap and water twice daily and cover with antibiotic ointment. Prescriptions: Cephalexin Monohydrate [Keflex 500 mg Capsule] 500 mg PO BID 5 Days #10 capsule Referrals: JOSE SCOTT PA [Primary Care Provider] - Follow up as needed
--- NOTE | 2018-07-28 16:26 | RADIOLOGY REPORT (SQ) ---
EXAM DESCRIPTION: ELBOW LEFT AP/LATERAL COMPLETED DATE/TIME: 07/28/2018 4:18 pm REASON FOR STUDY: cut eval foreign body COMPARISON: None. NUMBER OF VIEWS: Two views. TECHNIQUE: AP and lateral radiographic images acquired of the left elbow. LIMITATIONS: None. FINDINGS: MINERALIZATION: Normal. BONES: No acute fracture or dislocation. No worrisome bone lesions. JOINT: No effusion. SOFT TISSUES: No soft tissue swelling. No foreign body. OTHER: No other significant finding. IMPRESSION: NEGATIVE STUDY OF THE LEFT ELBOW. NO RADIOGRAPHIC EVIDENCE OF ACUTE INJURY. TECHNICAL DOCUMENTATION: JOB ID: [id number] [employer]- All Rights Reserved Reading location - IP/workstation name: [email or web address]
[2018-07-28] MEDS ORDERED: CEPHALEXIN 500 MG CAPSULE PO ONE (17:13)
== END 2018-07-28 17:24 | disposition home or self-care (01) ==
LOC: ER 15:21
DX: S51.012A Laceration without foreign body of left elbow, initial encounter (principal); W45.8XXA Other foreign body or object entering through skin, initial encounter; Y93.H3 Activity, building and construction; Y92.009 Unspecified place in unspecified non-institutional (private) residence as the place of occurrence of the external cause; E10.9 Type 1 diabetes mellitus without complications; I10 Essential (primary) hypertension
CPT/HCPCS: 12032; 99283; 73070; A9270

== ENCOUNTER → 2019-03-20 | Outpatient (CLI) | payer MEDICARE, MEDICAID ==
--- NOTE | 2019-03-20 08:51 | RADIOLOGY REPORT (SQ) ---
EXAM DESCRIPTION: SOFT TISSUE NECK COMPLETED DATE/TIME: 03/20/2019 8:37 am REASON FOR STUDY: MRI METAL SCREEN R51 HEADACHE COMPARISON: None. NUMBER OF VIEWS: Two views. TECHNIQUE: AP and lateral radiographic image of the soft tissues of the neck. LIMITATIONS: None. FINDINGS: EPIGLOTTIS: Normal. Contour normal. Aryepiglottic folds normal. PREVERTEBRAL SOFT TISSUES: Normal. No soft tissue swelling. SUBGLOTTIC AREA: Normal. No narrowing. RETROPHARYNGEAL SPACE: Normal. No soft tissue masses. BONES: No significant findings. LUNG APICES: Normal. OTHER: Radiopaque foreign body overlies the left lateral aspect the neck at approximately the level o f C7. The BB lies approximately 1.5 cm below the skin surface. IMPRESSION: Foreign body in the left aspect of the neck consistent with clinical history. TECHNICAL DOCUMENTATION: JOB ID: [id number] [employer]- All Rights Reserved Reading location - IP/workstation name: [email or web address]
--- NOTE | 2019-03-20 10:41 | RADIOLOGY REPORT (SQ) ---
EXAM DESCRIPTION: CT HEAD COMBO COMPLETED DATE/TIME: 03/20/2019 10:15 am REASON FOR STUDY: HEADACHE R51 HEADACHE Patient has a BB in his neck soft tissues, no MRI COMPARISON: None. TECHNIQUE: Axial images acquired through the brain without and with intravenous contrast. Images re viewed with bone, brain and subdural windows. Additional sagittal and coronal reconstructions were g enerated. Images stored on PACS. All CT scanners at this facility use dose modulation, iterative reconstruction, and/or weight based d osing when appropriate to reduce radiation dose to as low as reasonably achievable (ALARA). [facility]: Dose Right [facility]: CareDose [facility]: Dose Right [facility]: Teradose 4D [facility]: BIG Launcher CONTRAST TYPE AND DOSE: contrast/concentration: Isovue 350.00 mg/ml; Total Contrast Delivered: 50.0 ml; Total Saline Delivered: 50.0 ml RENAL FUNCTION: Creatinine 1.3 RADIATION DOSE: CT Rad equipment meets quality standard of care and radiation dose reduction techniq ues were employed. CTDIvol: 48.6 - 48.6 mGy. DLP: 1907 mGy-cm.. LIMITATIONS: None. FINDINGS: VENTRICLES: Normal size and contour. CEREBRUM: No masses. No hemorrhage. No midline shift. Normal suarez/white matter differentiation. No ev idence for acute infarction. No enhancing lesions. CEREBELLUM: No masses. No hemorrhage. No alteration of density. No evidence for acute infarction. No enhancing lesions. EXTRA-AXIAL SPACES: No fluid collections. No enhancing lesions. ORBITS AND GLOBE: No intra- or extraconal masses. Normal contour of globe without masses. CALVARIUM: No fracture. PARANASAL SINUSES: No fluid or mucosal thickening. SOFT TISSUES: No mass or hematoma. OTHER: No other significant finding. IMPRESSION: NORMAL BRAIN CT WITHOUT AND WITH CONTRAST. EVIDENCE OF ACUTE STROKE: NO. TECHNICAL DOCUMENTATION: JOB ID: [id number] Quality ID # [id number]: Final reports with documentation of one or more dose reduction techniques (e.g., Au tomated exposure control, adjustment of the mA and/or kV according to patient size, use of iterative reconstruction technique) 2010 [employer]- All Rights Reserved Reading location - IP/workstation name: [email or web address]
== END ==
LOC: RAD 08:09
PROVIDERS: ATTEND Physician Assistant
DX: R51 Headache (principal); M79.5 Residual foreign body in soft tissue
CPT/HCPCS: 70360; 70470; 82565